=== PATIENT | female | born 1955 | race African-American/Black ===

== ENCOUNTER 2016-11-26 05:26 | Inpatient (IN) | payer BC ==
[2016-11-22 12:13] LABS: HEMOGLOBIN 13.9 g/dL (12.0-15.5); HGB HCT DIFFERENCE -0.3; MEAN CORPUSCULAR HEMOGLOBIN 28.1 pg (27.0-33.4); MEAN CORPUSCULAR HGB CONC 33.1 g/dL (32.0-36.0); MEAN CORPUSCULAR VOLUME 85 fl (80-97); RED BLOOD COUNT 4.95 10^6/uL (3.72-5.28); RED CELL DISTRIBUTION WIDTH 14.2 % (11.5-14.0); WHITE BLOOD COUNT 4.1 10^3/uL (4.0-10.5)
[2016-11-22 12:30] LABS: APPEARANCE,URINE SLIGHTLY-CLOUDY; BILIRUBIN,URINE NEGATIVE (NEGATIVE); GLUCOSE, URINE NEGATIVE (NEGATIVE); KETONES,URINE NEGATIVE (NEGATIVE); LEUKOCYTE ESTERASE,URINE NEGATIVE (NEGATIVE); NITRITE,URINE NEGATIVE (NEGATIVE); PROTEIN,URINE NEGATIVE (NEGATIVE); URINE SPECIFIC GRAVITY 1.012; UROBILINOGEN,URINE NEGATIVE mg/dL (<2.0)
[2016-11-22 12:51] LABS: ALANINE AMINOTRANSFERASE 32 U/L (9-52); ALBUMIN 4.7 g/dL (3.5-5.0); ALKALINE PHOSPHATASE 93 U/L (38-126); ANION GAP 13 (5-19); ASPARTATE AMINO TRANSFERASE 23 U/L (14-36); BILIRUBIN,DIRECT 0.3 mg/dL (0.0-0.4); BILIRUBIN,TOTAL 0.5 mg/dL (0.2-1.3); BLOOD UREA NITROGEN 17 mg/dL (7-20); CALCIUM 10.2 mg/dL (8.4-10.2); CARBON DIOXIDE 29 mmol/L (22-30); CHLORIDE 99 mmol/L (98-107); CREATININE RESULT 0.71 mg/dL (0.52-1.25); GLUCOSE 81 mg/dL (75-110); POTASSIUM 4.4 mmol/L (3.6-5.0); SODIUM 140.7 mmol/L (137-145); TOTAL PROTEIN 7.6 g/dL (6.3-8.2)
--- NOTE | 2016-11-22 13:19 | EKG REPORT ---
SEVERITY:- NORMAL ECG - SINUS RHYTHM : Confirmed by: Jan Chapman MD 22-Nov-2016 13:18:59
[~2016-11-26 05:26] MED LIST: GENTAMICIN SULFATE 120 MG in DEXTROSE 5%-WATER 100 ML IV PRN; LACTATED RINGERS 1000 ML IV PRN; NORMAL SALINE 1000 ML (RENAL PATIENTS) IV PRN
[2016-11-26] MEDS ORDERED: FENTANYL CITRATE INJ/PF 250 MCG/5 ML AMPULE ONE ×2 (06:43→08:52)
[2016-11-26] MEDS ORDERED: KETOROLAC TROMETHAMINE 60 MG/2 ML SDV ONE (06:43)
[2016-11-26] MEDS ORDERED: LIDOCAINE 2% INJ-PF (20 MG/ML) 10 ML AMPUL ONE (06:43)
[2016-11-26] MEDS ORDERED: MIDAZOLAM 2 MG/2 ML INJ ONE (06:43)
[2016-11-26] MEDS ORDERED: DEXAMETHASONE SOD PHOSPHATE INJ 4 MG/1 ML VIAL ONE (06:43)
[2016-11-26] MEDS ORDERED: PROPOFOL INJ 200 MG/20 ML VIAL IV ONE (06:44)
[2016-11-26] MEDS ORDERED: ONDANSETRON HCL INJ/PF 4 MG/2 ML SDV ONE (06:44)
[2016-11-26] MEDS ORDERED: ACETAMINOPHEN 100 ML IV ONE ×2 (06:44→15:00)
[2016-11-26] MEDS ORDERED: ALBUTEROL SULFATE 0.083% NEB 2.5 MG/3 ML AMPUL NEB ONE (07:00)
[2016-11-26] MEDS ORDERED: FAMOTIDINE INJ/PF 20 MG/2 ML SDV IV ONE (07:10)
[2016-11-26] MEDS ORDERED: SCOPOLAMINE HYDROBROMIDE 1.5 MG PATCH.TD72 ONE (07:12)
[2016-11-26] MEDS: CLINDAMYCIN 900 MG/D5W RTU 50 ML IV PRN ×3 (07:51→15:23)
[2016-11-26] MEDS ORDERED: EPHEDRINE SULFATE INJ 50 MG/1 ML AMPULE ONE (08:30)
[2016-11-26] MEDS ORDERED: VASOPRESSIN INJ 20 UNIT/1 ML VIAL ONE (08:44)
[2016-11-26] MEDS ORDERED: HYDROMORPHONE HCL INJ/PF 2 MG/ML AMPULE ONE (08:52)
[2016-11-26] MEDS ORDERED: FENTANYL CITRATE INJ/PF 100 MCG/2 ML AMPUL IV PRN ×3 (10:23)
[2016-11-26] MEDS ORDERED: DIPHENHYDRAMINE HCL 50 MG/ML VIAL IV PRN (10:23)
[2016-11-26] MEDS ORDERED: OXYCODONE-ACETAMINOPHEN 5-325 MG TABLET PO PRN ×2 (10:23)
[2016-11-26] MEDS ORDERED: MEPERIDINE HCL/PF INJ 25 MG/1 ML DISP.SYRIN IV PRN (10:23)
[2016-11-26] MEDS ORDERED: ONDANSETRON HCL INJ/PF 4 MG/2 ML SDV IV PRN (10:23)
[2016-11-26] MEDS ORDERED: MORPHINE SULFATE 10 MG/ML INJ IV PRN ×2 (10:23→12:35)
[2016-11-26] MEDS ORDERED: PROMETHAZINE HCL INJ 25 MG/1 ML VIAL IV PRN ×2 (10:23)
[2016-11-26] MEDS: FENTANYL CITRATE INJ/PF 100 MCG/2 ML AMPUL ONE ×2 (12:10→12:15)
[2016-11-26] MEDS ORDERED: HYDROMORPHONE HCL INJ/PF 2 MG/ML AMPULE IV PRN (12:25)
[2016-11-26 12:44] LABS: HEMATOCRIT 31.8 % (36.0-47.0); HEMOGLOBIN 10.6 g/dL (12.0-15.5); MEAN CORPUSCULAR HGB CONC 33.2 g/dL (32.0-36.0); MEAN CORPUSCULAR VOLUME 85 fl (80-97); RED BLOOD COUNT 3.77 10^6/uL (3.72-5.28); RED CELL DISTRIBUTION WIDTH 13.9 % (11.5-14.0); WHITE BLOOD COUNT 14.6 10^3/uL (4.0-10.5)
[2016-11-26] MEDS: HYDROMORPHONE HCL INJ/PF 2 MG/ML AMPULE ONE ×5 (12:50→13:35)
--- NOTE | 2016-11-26 13:13 | OPERATIVE REPORT E ---
Operative Report NAME: DEIDRE KWAN : 1955 AGE: 61Y DATE OF SURGERY: 11/26/2016 ROOM: PREOPERATIVE DIAGNOSES: 1. Abnormal uterine bleeding. 2. Pelvic pain. 3. Symptomatic fibroids. 4. Pelvic adhesive disease. POSTOPERATIVE DIAGNOSES: 1. Abnormal uterine bleeding. 2. Pelvic pain. 3. Symptomatic fibroids. 4. Pelvic adhesive disease. SURGEON: IVONNE VALENZUELA M.D. ANESTHESIA: Dr. Nath with general. FINDINGS: A 24-week uterus with multiple enlarged fibroids and multiple adhesions of the omentum to the uterus as well as to the pelvic sidewall and anterior abdominal wall. The ovaries were perimenopausal in appearance with normal fallopian tubes, but the fallopian tubes were both adhesed to the ovaries. ESTIMATED BLOOD LOSS: 750 mL. COMPLICATIONS: None. SPECIMENS REMOVED: Uterus, fallopian tubes, cervix, ovaries. PROCEDURE: An attempted robotic total laparoscopic hysterectomy that was converted to total abdominal hysterectomy with bilateral salpingo-oophorectomy, lysis of adhesions, and a partial omentectomy due to adhesions. PROCEDURE IN DETAIL: The patient was taken to the operating room and prepared and draped in a normal sterile fashion in the dorsal lithotomy position under sterile conditions. The Schumacher catheter was placed to gravity and the sterile speculum was placed in the vagina. The cervix was grasped with a single-toothed tenaculum and the cervix was sounded to approximately 12 cm. The cervix was then dilated to accommodate a medium Vcare, which was placed without difficulty. The sterile speculum was removed and gloves were changed and attention was changed to the upper portion of the case. A skin incision was made approximately 2 cm above and to the right of the umbilicus, based on the patient's exam under anesthesia. This was carried through to the underlying layer of fascia with a scalpel and the fascia was tented with Sara's and entered sharply with Hernandez scissors. The rectus muscle was divided and the peritoneum was then entered sharply with Hernandez scissors tenting with a hemostat carefully. Once the peritoneal cavity was entered, the incision was widened approximately 2 cm from the Gelpoint. The Gelpoint was then placed and a large extravasation bag was placed in the right pericolic gutter. The Gelpoint was then completed and the Airseal and the camera port were introduced through the Gelpoint. The Airseal was then used to inflate the abdomen with CO2 gas approximately 2 L. The camera was then placed and the above findings were noted. Some blunt dissection through the Airseal accessory port was performed with an atraumatic grasper of the omental adhesions to the anterior abdominal wall as well as the pelvic sidewalls for better visualization. The patient was placed in steep Trendelenburg and the bowel was swept away as best we could. Under direct visualization, two 5 mm ports were placed approximately 10 cm on either side of the umbilicus and this was used for the robotic arms. The robot was then docked and a vessel sealer was placed on the left and the monopolar scissors were placed on the right. Completion of the lysis of adhesions was performed while I sat at the robotic console using the monopolar scissors as needed and some blunt dissection using the vessel sealer. Beginning with the right adnexa, this was the adnexa that was presenting itself easier. The IP ligament was transected using the vessel sealer hugging the ovary and carrying through to the round ligament, again hugging the fibroids and the uterus. Visualization was beginning to be somewhat obscured, so I did stop the case and we injected approximately 20 mL of lidocaine 2% with epi directly into the fibroids in order to try for myomectomy to help with visualization. I then *------* and began with transection of the fibroids using the vessel sealer hugging the fibroids closely. However, easy myomectomy could not be performed using this method, and at this point, the scissor cover on the monopolar scissors had come loose and was free in the abdomen. This was removed by the assistance through the accessory port. With my assistance, she was picking up the piece using the vessel sealer and handing it to my medical lab assistant. We then replaced the monopolar scissor tip and replaced the monopolar scissors back into the abdomen and we continued with current dissection. However, we noted that the monopolar scissors cover was continuing to slide throughout the case. The bladder flap was successfully created using the monopolar scissors and some dissection was begun. However, we noticed again that the tip had fallen below and the monopolar scissors had come uncovered. Therefore, due to this and poor visualization, it was decided that the case would be continued in an open procedure as we felt that this was not safe to proceed as we could not get the scissors to cooperate. Therefore, the robot was undocked and the patient's abdomen was deflated and all the trocars and instruments were removed at this point. We redraped, and I excised the skin using a 10-blade scalpel following the patient's previous scar and this excision was carried through to the underlying layer of fascia with the same scalpel. The fascia was excised in the midline and extended laterally with Hernandez's. The fascia was then tented with Sara's and the fascia was dissected from the rectus muscle sharply using Bovie. The rectus muscle was divided and the peritoneal cavity was entered sharply using Hernandez's and careful dissected. The fibroid uterus was then grasped and extruded through the incision without difficulty. The left adnexa was identified and this adnexa was transected using a LigaSure, again hugging the ovary, and the IP ligament was transected. The right and left uterine arteries were continued to be skeletonized using the LigaSure and some minimal blunt dissection to allow the ureter and the coagulated arteries to fall away. This was continued on both sides until hugging the fibroids and the uterus closely. Myomectomies were performed along the way using blunt dissection and some sharp dissection with the LigaSure as needed to increase visualization. A towel clip was then placed on the remainder of the uterus for manipulation. We then continued coagulation and skeletonization of the uterine artery using LigaSure bilaterally until the cuff angles were identified and the vaginal cuff was found to be entered. At this point, a Darby clamp was placed at both vaginal cuff angles and the vaginal cuff was then created using the Matt scissors and the rest of the specimen was completely amputated from the vaginal cuff. The vaginal cuff angles were tied off with 0 Vicryl popoffs. The rest of the vaginal cuff was then closed with interrupted figure of eights with 0 Vicryl popoffs. The abdomen was inspected throughout the case for hemostasis and the vaginal cuff was found to be hemostatic at the end of the closure. We irrigated copiously several times to ensure that there were no vessels that were unattended and that everything was hemostatic. We then removed all the packing that had been done along the way and we had a lap count, which was correct. We then proceeded with closure and we placed a fish retractor to hold the bowel away and the rectus muscle and peritoneum was then reapproximated with 3 interrupted sutures of 2-0 Chromic. The fascia was then closed with 0 Vicryl. The subcutaneous layer was closed with plain catgut and the skin was closed with 4-0 Vicryl. I then turned my attention to the previous incisions and closed the Gelpoint incision at the fascia using 0 Vicryl on a UR6 needle and the subcutaneous layer was closed also with a couple of interrupted plain gut sutures. The skin was closed at the other 3 sites also with 4-0 Vicryl. Patient tolerated the procedure well. Sponge, lap, and needle counts were correct x2. Patient was taken to recovery in stable condition. DICTATING PHYSICIAN: IVONNE VALENZUELA M.D. [id number] PHY#: [id number] ID: [id number] JOB#: [id number] ACCT: [id number] cc:IVONNE VALENZUELA M.D. >
[2016-11-26] MEDS ORDERED: SUCCINYLCHOLINE CHLORIDE INJ 200 MG/10 ML VIAL ONE (13:26)
[2016-11-26] MEDS ORDERED: PHENYLEPHRINE HCL INJ/PF 10 MG/1 ML SDV ONE (13:26)
[2016-11-26] MEDS ORDERED: VECURONIUM BROMIDE INJ 10 MG VIAL IV ONE (13:26)
[2016-11-26] MEDS ORDERED: GLYCOPYRROLATE INJ 0.4 MG/2 ML VIAL ONE (13:26)
[2016-11-26] MEDS ORDERED: NEOSTIGMINE METHYLSULFATE 10 MG/10 ML VIAL ONE (13:26)
[2016-11-26] MEDS ORDERED: KETOROLAC TROMETHAMINE INJ/PF 30 MG/1 ML SDV IV SCH (14:00)
[2016-11-26] MEDS: RINGERS SOLUTION,LACTATED 1,000 ML IV PRN ×2 (15:18→23:32)
[2016-11-26] MEDS: KETOROLAC TROMETHAMINE INJ/PF 30 MG/1 ML SDV IV SCH (16:41)
[2016-11-27] MEDS: KETOROLAC TROMETHAMINE INJ/PF 30 MG/1 ML SDV IV SCH (00:21)
[2016-11-27 06:24] LABS: HEMATOCRIT 26.6 % (36.0-47.0); HEMOGLOBIN 8.6 g/dL (12.0-15.5); HGB HCT DIFFERENCE -0.8; MEAN CORPUSCULAR HEMOGLOBIN 27.6 pg (27.0-33.4); MEAN CORPUSCULAR HGB CONC 32.5 g/dL (32.0-36.0); MEAN CORPUSCULAR VOLUME 85 fl (80-97); RED BLOOD COUNT 3.13 10^6/uL (3.72-5.28); RED CELL DISTRIBUTION WIDTH 14.6 % (11.5-14.0); WHITE BLOOD COUNT 6.3 10^3/uL (4.0-10.5)
[2016-11-27] MEDS ORDERED: IBUPROFEN 800 MG TABLET PO PRN (08:00)
--- NOTE | 2016-11-27 08:02 | PDOC PROGRESS REPORT ---
Subjective Progress Note for:: 11/27/16 Subjective:: s/p attempted RA TLH converted to JENNIFER/BSO. Doing well. +flatus. bearden out 2 hrs ago. No void as yet. ambulating well. tolerating clears. Good UOP overnight. Physical Exam - Physical Exam Vital Signs: Temp Pulse Resp BP Pulse Ox 98.4 F 94 16 103/49 L 97 11/27/16 03:20 11/27/16 03:20 11/27/16 03:20 11/27/16 03:20 11/27/16 03:20 Intake & Output 11/26/16 11/27/16 11/28/16 06:59 06:59 06:59 Intake Total 0 5350 Output Total 5350 Balance 0 0 Weight 72.57 kg General appearance: PRESENT: no acute distress, cooperative Head exam: PRESENT: atraumatic GI/Abdominal exam: PRESENT: soft, tenderness - appropriate for post op period. incision c/d/intact at all sites Result Laboratory Results: 11/27/16 06:07 11/22/16 10:53 11/26/16 11/27/16 12:33 06:07 WBC 14.6 H 6.3 RBC 3.77 3.13 L Hgb 10.6 L 8.6 L Hct 31.8 L 26.6 L MCV 85 85 MCH 28.0 27.6 MCHC 33.2 32.5 RDW 13.9 14.6 H Plt Count 248 216 Assessment & Plan - Diagnosis (1) Leiomyoma of body of uterus Qualifiers: Uterine leiomyoma location: intramural Qualified Code(s): D25.1 - Intramural leiomyoma of uterus Is this a current diagnosis for this admission?: Yes (2) Pelvic pain Is this a current diagnosis for this admission?: Yes (3) Hypertrophy of uterus Is this a current diagnosis for this admission?: Yes (4) Abnormal uterine bleeding Is this a current diagnosis for this admission?: Yes - Inpatient Certification Based on my medical assessment, after consideration of the patient's comorbidities, presenting symptoms, or acuity I expect that the services needed warrant INPATIENT care.: Yes I certify that my determination is in accordance with my understanding of Medicare's requirements for reasonable and necessary INPATIENT services [42 CFR 412.3e].: Yes Medical Necessity: Need Close Monitoring Due to Risk of Patient Decompensation, Need for Pain Control - Plan Summary Plan Summary: if able to void today and tolerates regular diet with good ambulation will consider discharge to home this evening. otherwise plan for d/c in AM.
[2016-11-27] MEDS: OXYCODONE-ACETAMINOPHEN 5-325 MG TABLET PO PRN ×2 (09:10→23:40)
[2016-11-28] MEDS: OXYCODONE-ACETAMINOPHEN 5-325 MG TABLET PO PRN (09:00)
--- NOTE | 2016-11-28 09:56 | PDOC DISCHARGE SUMMARY ---
General - Admit/Disc Date/PCP Discharge Date: 11/28/16 - Discharge Diagnosis (1) Leiomyoma of body of uterus Is this a current diagnosis for this admission?: Yes (2) Pelvic pain Is this a current diagnosis for this admission?: Yes (3) Hypertrophy of uterus Is this a current diagnosis for this admission?: Yes (4) Abnormal uterine bleeding Is this a current diagnosis for this admission?: Yes - Additional Information Home Medications: Cetirizine HCl [Cetirizine 5 mg Tablet] 5 mg PO DAILY 11/20/16 Ferrous Sulfate [Iron] 325 mg PO DAILY 11/20/16 Cetirizine HCl [Zyrtec] 10 mg PO DAILY 11/26/16 History of Present Illness History of Present Illness: DEIDRE KWAN is a 61 year old female Hospital Course Hospital Course: s/p JENNIFER/BSO MARTIN, attempted Robotic Assisted. Pt has done very well post op. Is voiding, + flatus. Tolerating a regular diet Physical Exam - Physical Exam Vital Signs: Temp Pulse Resp BP Pulse Ox 98.4 F 90 16 112/71 96 11/28/16 08:24 11/28/16 08:24 11/28/16 08:24 11/28/16 08:24 11/28/16 08:24 Intake & Output 11/27/16 11/28/16 11/29/16 06:59 06:59 06:59 Intake Total 5350 350 Output Total 5350 1700 Balance 0 -1350 General appearance: PRESENT: no acute distress, cooperative GI/Abdominal exam: PRESENT: soft - tenderness appropriate for post op. incisions clean/dry/intact, tenderness Result Laboratory Results: 11/27/16 06:07 11/22/16 10:53 Plan Discharge Plan: discharge home. follow up at scheduled appt. Time Spent: Less than 30 Minutes
[2016-11-28 10:05] VITALS: BP 110/60
== END 2016-11-28 11:32 | disposition home or self-care (01) | DRG 743 ==
LOC: 2N 05:26 → UNDOADMIN 05:26 → OROUT 05:26 → 2N 05:30 → EDSTATUS 07:30 → OROUT 14:41 → 2N 14:41 → UNDODISIN 11-28 11:32 → 2N 11-28 11:32 → OROUT 11-28 11:32
PROVIDERS: ADMIT Obstetrics & Gynecology; ATTEND Obstetrics & Gynecology
PROC: 0UTC0ZZ Resection of Cervix, Open Approach (ICD-10-PCS; 2016-11-26)
PROC: 0UT20ZZ Resection of Bilateral Ovaries, Open Approach (ICD-10-PCS; 2016-11-26)
PROC: 0UT70ZZ Resection of Bilateral Fallopian Tubes, Open Approach (ICD-10-PCS; 2016-11-26)
PROC: [UNRECOGNIZED PROCEDURE] (2016-11-26)
PROC: 0UJD4ZZ Inspection of Uterus and Cervix, Percutaneous Endoscopic Approach (ICD-10-PCS; 2016-11-26)
PROC: 8E0W4CZ Robotic Assisted Procedure of Trunk Region, Percutaneous Endoscopic Approach (ICD-10-PCS; 2016-11-26)
PROC: 0UT90ZZ Resection of Uterus, Open Approach (ICD-10-PCS; principal; 2016-11-26 07:30)
DX: D25.9 Leiomyoma of uterus, unspecified (principal); N83.312 Acquired atrophy of left ovary; N83.311 Acquired atrophy of right ovary; N73.6 Female pelvic peritoneal adhesions (postinfective); N85.2 Hypertrophy of uterus; N93.9 Abnormal uterine and vaginal bleeding, unspecified; I10 Essential (primary) hypertension; R10.2 Pelvic and perineal pain; J45.909 Unspecified asthma, uncomplicated; D64.9 Anemia, unspecified; Z79.899 Other long term (current) drug therapy; Z79.51 Long term (current) use of inhaled steroids; Z88.0 Allergy status to penicillin
CPT/HCPCS: 36415; 80053; 81001; 840; 84703; 85027; 86850; 86900; 86901; 88307; 88341; 88342; 93005; 93010; J0131; J0330; J1100; J1170; J1580; J1885; J2250; J2370; J2405; J2704; J3010; J3490; J7120; S0028

== ENCOUNTER → 2017-04-02 | Outpatient (CLI) | payer BC ==
[2017-04-02 13:55] LABS: HEMATOCRIT 39.8 % (36.0-47.0); HEMOGLOBIN 13.3 g/dL (12.0-15.5); MEAN CORPUSCULAR HEMOGLOBIN 26.9 pg (27.0-33.4); MEAN CORPUSCULAR HGB CONC 33.4 g/dL (32.0-36.0); MEAN CORPUSCULAR VOLUME 81 fl (80-97); PLATELET COUNT 298 10^3/uL (150-450); RED BLOOD COUNT 4.95 10^6/uL (3.72-5.28); RED CELL DISTRIBUTION WIDTH 14.7 % (11.5-14.0); WHITE BLOOD COUNT 6.8 10^3/uL (4.0-10.5)
[2017-04-02 14:29] LABS: IRON(TIBC) 38.8 ug/dL (37-170)
== END ==
LOC: LAB 13:39
PROVIDERS: ATTEND Physician Assistant Surgical
DX: D50.0 Iron deficiency anemia secondary to blood loss (chronic) (principal)
CPT/HCPCS: 36415; 82728; 83540; 83550; 85027

== ENCOUNTER 2017-05-01 14:07 | Emergency (ER) | payer BC ==
[2017-05-01 14:37] VITALS: BP 169/92
--- NOTE | 2017-05-01 15:39 | ER Document Report ---
HPI - HPI Pain Level: 5 Notes: Patient is a 61-year-old female who presents to the ED complaining of left eye redness, drainage, matting this morning, and pain/irritation over the last couple days. Patient did have a URI illness a couple weeks ago, but has not been ill since then. She has not had any changes in her vision. Patient states that the irritation does not radiate. She is eating and drinking without difficulties. She is urinating normally having normal bowel movements. No other concerns or complaints at this time. Patient does not wear any contact lenses. Patient is allergic to penicillins. Denies any headache, fever , head injury, neck pain, changes in vision/speech/mentation/hearing, URI, sore throat, chest pain, palpitations, syncope, cough, shortness of breath, wheeze, dyspnea, abdominal pain, nausea/vomiting/diarrhea, urinary retention, dysuria, hematuria, or rash. - ROS Systems Reviewed and Negative: Yes All other systems reviewed and negative - REPRODUCTIVE Reproductive: DENIES: : Past Medical History - Social History Smoking Status: Unknown if Ever Smoked Family History: Reviewed & Not Pertinent - Past Medical History Cardiac Medical History: Denies: Hx Coronary Artery Disease, Hx Heart Attack, Hx Hypertension Pulmonary Medical History: Reports: Hx Asthma Denies: Hx COPD Neurological Medical History: Denies: Hx Cerebrovascular Accident, Hx Seizures Musculoskeltal Medical History: Denies Hx Arthritis Past Surgical History: Reports: Hx Abdominal Surgery - Hernia repair x2, Hx Section - Immunizations Hx Diphtheria, Pertussis, Tetanus Vaccination: Yes Vertical Provider Document - CONSTITUTIONAL Agree With Documented VS: Yes Notes: PHYSICAL EXAMINATION: GENERAL: Well-appearing, well-nourished and in no acute distress. A&Ox4 HEAD: Atraumatic, normocephalic. EYES: Pupils equal round and reactive to light, extraocular movements intact, sclera anicteric, conjunctiva left shows very mild episcleritis b/l w/o discharge or matting. Non-tender to palp of the globe and eye itself. No surrounding erythema or swelling noted. Visual acuity 20/25 b/l and in each eye (performed by myself at bedside with my own eye chart). Wood's lamp/flourescein: No abrasion, laceration, ulceration, or lisa sign noted. No obvious foreign body appreciated. Tonopen: pressure 16 b/l avg. ENT: EAC clear b/l. TM's intact b/l without erythema, fluid, or perforation. Nares patent and without discharge. oropharynx clear without exudates. No tonsilar hypertrophy or erythema. Moist mucous membranes. No sinus tenderness. Uvula midline. No palatine shift. No airway compromise. No drooling or hoarseness. NECK: Normal range of motion, supple without lymphadenopathy. No rigidity/ meningismus. LUNGS: Breath sounds clear to auscultation bilaterally and equal. No wheezes rales or rhonchi. HEART: Regular rate and rhythm without murmurs, rubs, gallops. Musculoskeletal: Ext b/l: FROM to passive/active. Strength 5+/5. Extremities: No cyanosis, clubbing, or edema b/l. Peripheral pulses 2+. Capillary refill less than 3 seconds. NEUROLOGICAL: Cranial nerves grossly intact. Normal speech, normal gait. Normal sensory, motor exams PSYCH: Normal mood, normal affect. SKIN: Warm, Dry, normal turgor, no rashes or lesions noted. - INFECTION CONTROL TRAVEL OUTSIDE OF THE [place] IN LAST 30 DAYS: No - RESPIRATORY O2 Sat by Pulse Oximetry: 98 Course - Re-evaluation Re-evalutation: 05/01/17 15:51 Patient is an afebrile, well-hydrated, 61-year-old female who presents to the ED with acute conjunctivitis of the left eye. Vitals are stable. PE is otherwise unremarkable. Fluorescein Wood's lamp was unremarkable for any uptake or abnormalities. There is no obvious foreign body. Tonometry at a pressure of 16 bilateral. Pt's pain/irritation symptoms resolved with tetracaine as well. Low suspicion for any retained corneal or lid foreign body , deep space infection including orbital cellulitis/abscess, acute glaucoma, penetrating globe injury, retinal detachment, meningitis, sepsis, fracture, compartment syndrome. I will send home with a prescription for Polytrim to use as directed. Conservative measures otherwise for symptoms with proper handwashing. Recheck with your PCM in 3-5 days. Schedule a f/u with Ophthalmology next week. Return to the ED with any worsening/concerning symptoms otherwise as reviewed in discharge. Patient is in agreement. - Vital Signs Vital signs: Temp Pulse Resp BP Pulse Ox 97.7 F 80 20 169/92 H 98 05/01/17 14:36 05/01/17 14:36 05/01/17 14:36 05/01/17 14:36 05/01/17 14:36 Procedures - Eye Procedure Left Time completed: 15:45 Eye Irrigated w/ Saline (ccs): 10 Alcaine Drops Administered: Yes - tetracaine Fluorescein applied: Left Notes: 05/01/17 15:42 wood's lamp tonopen utilized see exam/course Discharge - Discharge Clinical Impression: Conjunctivitis Qualifiers: Conjunctivitis type: acute Acute conjunctivitis type: unspecified Laterality: left Qualified Code(s): H10.32 - Unspecified acute conjunctivitis, left eye Condition: Stable Disposition: HOME, SELF-CARE Instructions: Conjunctivitis ([facility]), Eyedrop Use ([facility]) Additional Instructions: keep eyes clean Avoid scratching/touching eyes Wash hands regularly Use eye drops as directed Maintain adequate fluid intake tylenol/ibuprofen as needed over the counter cold medication as needed for symptoms F/u: with your PCM in 2-3 days for a recheck Consider consult with Ophthalmology for ongoing/worsening symptoms Return to the ED with any worsening symptoms and/or development of fever, headache, changes in vision, eye pain, worsening eye redness, redness around the eyes, purulent discharge, sore throat, facial swelling, neck pain/stiffness , chest pain, palpitations, syncope, shortness of breath, trouble breathing, abdominal pain, n/v/d, blood in stool/urine, dysuria, or other worsening symptoms that are concerning to you. Prescriptions: Polymyxin B Sulf/Trimethoprim [Polytrim Eye Drops] 1 drop OD Q3H #10 ml Forms: Elevated Blood Pressure Referrals: DEJUAN PAINTING MD [ACTIVE STAFF] - Follow up in 3-5 days
== END 2017-05-01 16:12 | disposition home or self-care (01) ==
LOC: ER 14:07
DX: H10.32 Unspecified acute conjunctivitis, left eye (principal); J45.909 Unspecified asthma, uncomplicated; Z88.0 Allergy status to penicillin
CPT/HCPCS: 99283

== ENCOUNTER → 2018-02-09 | Outpatient (CLI) | payer BC ==
[2018-02-09 15:35] LABS: HEMATOCRIT 39.5 % (36.0-47.0); HEMOGLOBIN 13.3 g/dL (12.0-15.5); MEAN CORPUSCULAR HEMOGLOBIN 27.2 pg (27.0-33.4); MEAN CORPUSCULAR HGB CONC 33.7 g/dL (32.0-36.0); MEAN CORPUSCULAR VOLUME 81 fl (80-97); PLATELET COUNT 330 10^3/uL (150-450); RED BLOOD COUNT 4.88 10^6/uL (3.72-5.28); WHITE BLOOD COUNT 8.1 10^3/uL (4.0-10.5)
[2018-02-09 15:48] LABS: APPEARANCE,URINE SLIGHTLY-CLOUDY; BILIRUBIN,URINE SMALL (NEGATIVE); COLOR,URINE YELLOW; GLUCOSE, URINE NEGATIVE (NEGATIVE); KETONES,URINE NEGATIVE (NEGATIVE); LEUKOCYTE ESTERASE,URINE NEGATIVE (NEGATIVE); NITRITE,URINE NEGATIVE (NEGATIVE); PROTEIN,URINE NEGATIVE (NEGATIVE); URINE SPECIFIC GRAVITY 1.031; UROBILINOGEN,URINE NEGATIVE mg/dL (<2.0)
[2018-02-09 16:00] LABS: ANION GAP 10 (5-19); BLOOD UREA NITROGEN 26 mg/dL (7-20); CARBON DIOXIDE 32 mmol/L (22-30); CHLORIDE 101 mmol/L (98-107); GLUCOSE 89 mg/dL (75-110); POTASSIUM 4.9 mmol/L (3.6-5.0); SODIUM 143.2 mmol/L (137-145)
== END ==
LOC: LAB 14:59
PROVIDERS: ATTEND Physician Assistant Surgical
DX: M54.5 Low back pain (principal); D50.0 Iron deficiency anemia secondary to blood loss (chronic)
CPT/HCPCS: 36415; 80048; 81001; 85027